=== PATIENT | male | born 1945 | race Caucasian/White ===

== ENCOUNTER 2018-06-19 09:36 | Emergency (ER) | payer OTHER, MEDICARE ==
[~2018-06-19] VITALS: Ht 177.8 cm; Wt 102.0 kg
[2018-06-19 09:55] VITALS: BP 147/77
[2018-06-19 10:07] LABS: HEMATOCRIT 36.5 % (39.0-50.0); IMMATURE GRANULOCYTES 0.3 % (0.0-5.0); MEAN CORPUSCULAR HGB 28.9 pG CALC (26.0-32.0); MEAN CORPUSCULAR HGB CONC 32.9 g/L CALC (32.0-36.0); NEUT# 5.68 thou/uL (1.82-7.42); RED BLOOD COUNT 4.15 mill/uL (4.70-6.10); RED CELL DISTRI WIDTH 12.7 % (11.5-15.5)
[2018-06-19] MEDS ORDERED: OMEPRAZOLE20 MG PO (10:08)
[2018-06-19] MEDS ORDERED: LEVOTHYROXIN50 MC1 PO (10:08)
[2018-06-19] MEDS ORDERED: AMLODIPINE5 MG PO (10:09)
[2018-06-19 10:22] LABS: ALBUMIN 4.3 g/dL (3.2-5.0); ALKALINE PHOSPHATASE 67 u/l (38-126); ANION GAP 15 (6-22 (CALC)); BILIRUBIN, TOTAL 0.6 mg/dL (0.0-1.4); BUN 28 mg/dL (8-23); BUN/CREATININE RATIO 29 (12-20 (CALC)); CARBON DIOXIDE 25 mmol/l (22-30); CHLORIDE 105 mmol/l (95-108); GFR > 60 ML/MIN (>=60 (CALC)); GFR FOR AFR.AMER. > 60 ML/MIN (>=60 (CALC)); POTASSIUM 4.4 mmol/l (3.5-5.1); SGOT/AST 32 u/l (19-48); SODIUM 140 mmol/l (137-146)
[2018-06-19 11:42] LABS: ACT PARTIAL THROMBO TIME 33.3 SECONDS (20.0-32.5); PROTHROMBIN TIME 10.8 SECONDS (9.0-12.5)
== END 2018-06-19 12:15 | disposition short-term general hospital (02) | DRG 301 ==
LOC: ED 09:36
PROVIDERS: Emergency Medicine
DX: I82.402 Acute embolism and thrombosis of unspecified deep veins of left lower extremity (principal); I10 Essential (primary) hypertension; E03.9 Hypothyroidism, unspecified
CPT/HCPCS: J1644

== ENCOUNTER 2019-08-06 09:22 | Day surgery (SDC) | payer MEDICARE ==
[~2019-08-06 09:22] MED LIST: ALLERGY RE50 MCG/ACT; AMLODIPINE5 MG PO; ELIQUIS5 MG PO; GABAPENTIN100 MG PO; IRON325 M1 PO; LEVOTHYROXIN50 MC1 PO; LOSARTAN POTASS50 MG PO; MAGNESIUM250 M1 PO; OMEPRAZOLE20 MG PO; PROTONIX40 M2 PO; TYLENOL 8 HOUR650 MG PO
[2019-08-06 11:52] VITALS: BP 108/55
== END 2019-08-06 12:05 | disposition home or self-care (01) ==
LOC: ENDO 09:22 → ORM 09:30 → ENDO 12:05
PROVIDERS: ATTEND Surgery
PROC: 0DBH8ZX Excision of Cecum, Via Natural or Artificial Opening Endoscopic, Diagnostic (ICD-10-PCS; principal; 2019-08-06)
PROC: 0DBF8ZX Excision of Right Large Intestine, Via Natural or Artificial Opening Endoscopic, Diagnostic (ICD-10-PCS; 2019-08-06)
PROC: 0DB48ZX Excision of Esophagogastric Junction, Via Natural or Artificial Opening Endoscopic, Diagnostic (ICD-10-PCS; 2019-08-06)
PROC: 0DB78ZX Excision of Stomach, Pylorus, Via Natural or Artificial Opening Endoscopic, Diagnostic (ICD-10-PCS; 2019-08-06)
PROC: 0DB68ZX Excision of Stomach, Via Natural or Artificial Opening Endoscopic, Diagnostic (ICD-10-PCS; 2019-08-06)
DX: R19.5 Other fecal abnormalities (principal); D64.9 Anemia, unspecified; K57.30 Diverticulosis of large intestine without perforation or abscess without bleeding; D12.2 Benign neoplasm of ascending colon; D12.0 Benign neoplasm of cecum; K64.8 Other hemorrhoids; Q43.9 Congenital malformation of intestine, unspecified; K29.50 Unspecified chronic gastritis without bleeding; K44.9 Diaphragmatic hernia without obstruction or gangrene; K21.9 Gastro-esophageal reflux disease without esophagitis; I10 Essential (primary) hypertension; E03.9 Hypothyroidism, unspecified; Z79.899 Other long term (current) drug therapy; Z79.01 Long term (current) use of anticoagulants; Z86.711 Personal history of pulmonary embolism; Z11.59 Encounter for screening for other viral diseases

== ENCOUNTER 2020-02-08 20:20 | Observation (INO) | payer MEDICARE ==
[~2020-02-08] VITALS: Ht 177.8 cm; Wt 103.0 kg
--- NOTE | 2020-02-08 20:20 | NUR ---
BY WC TO ROOM
[2020-02-08] MEDS ORDERED: METOPROLOL SUCC50 MG PO (20:50)
[2020-02-08] MEDS ORDERED: NEXIUM40 M1 PO (20:51)
[2020-02-08] MEDS ORDERED: HYDROXYCHLOR200 M1 PO (20:52)
[2020-02-08] MEDS ORDERED: TRAZODONE50 MG PO (20:53)
[2020-02-08] MEDS ORDERED: RYTARY 36.25-141 CAP PO (20:56)
[2020-02-08 21:03] LABS: HEMATOCRIT 40.1 % (39.0-50.0); HEMOGLOBIN 13.2 g/dl (14.0-18.0); IMMATURE GRANULOCYTES 0.3 % (0.0-5.0); MEAN CORPUSCULAR HGB 30.1 pG CALC (26.0-32.0); MEAN CORPUSCULAR HGB CONC 32.9 g/dL CAL (32.0-36.0); NEUT# 4.48 thou/uL (1.82-7.42); RED BLOOD COUNT 4.38 mill/uL (4.70-6.10); RED CELL DISTRI WIDTH 11.8 % (11.5-15.5)
[2020-02-08 21:04] LABS: MEAN CELL VOLUME 91.6 fL CALC (80.0-100.0)
--- NOTE | 2020-02-08 21:08 | NUR ---
Patient resting, at bedside. CALL ACEVES AVAILABLE.
[2020-02-08 21:20] LABS: PROTHROMBIN TIME 10.4 SECONDS (9.0-12.5)
--- NOTE | 2020-02-08 21:21 | NUR ---
Patient states he is feeling better. Notified of plan of care..
[2020-02-08 21:22] LABS: ALBUMIN 4.5 g/dL (3.2-5.0); ALKALINE PHOSPHATASE 60 u/l (38-126); ANION GAP 10 (6-22 (CALC)); BILIRUBIN, TOTAL 0.3 mg/dL (0.0-1.4); BUN 28 mg/dL (8-23); BUN/CREATININE RATIO 22 (12-20 (CALC)); CARBON DIOXIDE 29 mmol/l (22-30); CHLORIDE 104 mmol/l (95-108); CREATININE 1.3 mg/dL (0.7-1.3); GFR 54 ML/MIN (>=60 (CALC)); GFR FOR AFR.AMER. > 60 ML/MIN (>=60 (CALC)); POTASSIUM 4.2 mmol/l (3.5-5.1); SGOT/AST 37 u/l (19-48); SODIUM 140 mmol/l (137-146); TOTAL PROTEIN 8.7 g/dL (6.3-8.2)
[2020-02-08 21:33] LABS: MYOGLOBIN 60 ng/mL (0 - 121)
--- NOTE | 2020-02-08 21:37 | NUR ---
DR CHISHOLM IN TO UPDATE PT ON PLAN OF CARE.
--- NOTE | 2020-02-08 22:00 | NUR ---
TOOK OVER PT FROM JUANJOSE ROSE. WHEN PT ARRIVED HE WAS COMPLAINING OF PAIN IN HIS LEFT CHEST BUT MOSTLY IN LEFT ARM. PT VERY ANXIOUS AT THAT TIME DUE TO HISTORY OF BLOOD CLOTS IN HIS LEGS AND LEFT ARM FEELS TIGHT LIKE HIS DVT DID. PT IS NOW CALM AND RELAXED. PAIN GONE EXCEPT WHEN HE TAKES A DEEP BREATH HIS THROAT HURTS.
--- NOTE | 2020-02-08 22:36 | NUR ---
DR CHISHOLM IN TO GO OVER RESULTS AND DISCUSS PLAN OF CARE.
--- NOTE | 2020-02-08 22:54 | NUR ---
PT TO BE ADNITTED OBSERVATION FOR CHEST PAIN. COVID SWAB COLLECTED AND SENT TO LAB.
--- NOTE | 2020-02-08 23:40 | NUR ---
COVID ANTIGEN NEGATIVE. WAITING ON BED.
--- NOTE | 2020-02-09 00:11 | NUR ---
Admission Note Report Given to: JUANJOSE CRANE Transported by: X Wheelchair Stretcher Transported with: X Nurse Transporter X Patent IV O2 X Personnel Coordinator Location: ICU X [facility]
[2020-02-09 01:13] VITALS: BP 142/83
--- NOTE | 2020-02-09 01:17 | NUR ---
PATIENT ADMITTED FROM ER VIA STRETCHER WITH ER STAFF IN ATTENDANCE. PATIENT IS ABLE TO WALK FROM STRETCHER TO THE BR TO VOID-STEADY ON HIS FEET. PATIENT RESTING IN BED AT THIS TIME. ALERT AND ORIENTEDX3. PATIENT WAS ADMITTED FOR CHEST TIGHTNESS THAT RADIATED TO HIS LEFT SHOULDER/NECK AND THEN DOWN HIS LEFT ARM. PAIN IS RELIEVED AT THIS TIME. PATIENT WITH HISTORY OF PARKINSONS DISEASE, HTN. PATIENT IS QUITE ANXIOUS ABOUT BEING IN THE HOSPITAL. REASSURANCE WAS OFFERED. TELE MONITOR IN P[LACE. SALINE LOCK TO RAC INTACT AND FLUSHED WITH GOOD BLOOD RETURN. LUNGS ARE CLEAR. HR IS REGULAR. ABD IS SOFT WITH ACTIVE BS-LAST BM WAS 12/07. DENIES ANY DIFFICULTY WITH URINATION. NO PERIPHERAL EDEMA NOTED AND PULSES AR PALPABLE. ORIENTED TO ROOM AND SURROUNDINGS. INSTRUCTED ON USE OF NURSE CALL LIGHT SYSTEM, TV REMOTE AND PHONE. CALL LIGHT IN REACH. WILL CONT TO MONITOR.
--- NOTE | 2020-02-09 02:15 | NUR ---
PATIENT RESTING IN BED AT THIS TIME WITH HOB SLIGHTLY ELEVATED AND EYES CLOSED. RESPS ARE EVEN AND UNLABORED. TELE MONITOR IN PLACE-SR 76. CALL LIGHT IN REACH. WILL CONT TO MONITOR
[2020-02-09 03:42] VITALS: BP 145/74
--- NOTE | 2020-02-09 04:30 | NUR ---
PATIENT APPEARS SLEEPING AT THIS TIME WITH EYES CLOSED. RESPS ARE EVEN AND UNLABORED. TELE MONITOR IN PLACE. CALL LIGHT IN REACH. WILL CONT TO MONITOR/.
--- NOTE | 2020-02-09 07:15 | NUR ---
REPORT RECEIVED FROM JUANJOSE CRANE
--- NOTE | 2020-02-09 08:30 | NUR ---
PT RESTING IN SEMI FOWLERS POSITION,A&O X3;VS OBTAINED AND ASSESSMENT COMPLETED;PT REPORTS LEFT CHEST PRESSURE WITH MOVEMENT OR WHEN PRESSURE IS APPLIED, PAIN SCALE AND REPORTING EDUCATED;RESPIRATIONS EVEN AND UNLABORED ON RA,CLEAR LUNG SOUNDS;ABDOMEN SOFT ON PALPATION AND ACTIVE IN ALL 4 QUADRANTS;STRONG PEDAL PULSES;SKIN INTACT;TELE MONITORING IN PLACE;#20G TO RAC FLUSHED AND PATENT,SITE APPEARS HEALTHY;PT DENIES ANY ADDITIONAL NEEDS AT THIS TIME AND IS ENCOURAGED TO CALL FOR ASSISTANCE IF NEEDED;FALL PRECAUTIONS IN PLACE WITH BED IN THE LOWEST POSITION AND CALL LIGHT IN REACH;WILL CONTINUE TO MONITOR
[2020-02-09 08:33] VITALS: BP 142/91
--- NOTE | 2020-02-09 08:52 | NUR ---
AT BEDSIDE DISCUSSING POC WITH PT.
[2020-02-09 10:30] VITALS: BP 137/83
--- NOTE | 2020-02-09 11:25 | NUR ---
PT RESTING IN SEMI FOWLERS POSITION;RESPIRATIONS EVEN AND UNLABORED ON RA;PT REPORTS HEADACHE PAIN RATING 6/10 ON THE PAIN SCALE AND REQUESTS PAIN MEDICATION, PT MEDICATED WITH PRN TYLENOL 650MG PO AT THIS TIME;IV SITE PATENT;TELE MONITORING IN PLACE;ASSESSMENT REMAINS UNCHANGED;ENCOURAGED PT TO CALL FOR ASSISTANCE IF NEEDED;FALL PRECAUTIONS REMAIN IN PLACE WITH CALL LIGHT IN REACH;WILL CONTINUE TO MONITOR
[2020-02-09] MEDS ORDERED: FLEXERIL5 MG PO (13:42)
--- NOTE | 2020-02-09 15:05 | NUR ---
ALL DISCHARGE INSTRUCTIONS PROVIDED AT THIS TIMEL;PT INSTRUCTED TO F/U WITH PCP IN THE NEXT WEEK, F/U WITH FOR A CARDIAC WORKUP, CONTINUE HOME MEDICATIONS DIRECTED, RX FOR FLEXIRL SENT TO PHARMACY AND PT INSTRUCTED TO TAKE NEEDED;PT DENIES ANY ADDITIONAL QUESTIONS OR NEEDS;IV SITE REMOVED WITH CATHETER INTACT AND TELE MONITORING D/C;WHEELCHAIR TO BE PROVIDED FOR D/C HOME;SPOUSE TO TRANSPORT PT HOME;WILL CONTINUE TO MONITOR
--- NOTE | 2020-02-09 15:06 | NUR ---
Discharge instructions given. Patient verbalizes understanding of same. Discharged in stable condition via Wheelchair to Home with spouse. All belongings sent with pt. PT TRANSPORTED TO [facility] IN STABLE CONDITION VIA WHEELCHAIR ACCOMPANIED BY ESTELA LIU;ALL BELONGINGS LEFT WITH PT.SPOUSE TO TRANSPORT PT HOME.
== END 2020-02-09 15:05 | disposition home or self-care (01) ==
LOC: ED 20:20 → ED-I 22:29 → MS2 23:03 → ED 23:03 → MS2 23:03
PROVIDERS: Emergency Medicine; ADMIT Internal Medicine; ATTEND Internal Medicine
DX: R07.89 Other chest pain (principal); M25.512 Pain in left shoulder; I10 Essential (primary) hypertension; E03.9 Hypothyroidism, unspecified; G20 Parkinson's disease; K21.00 Gastro-esophageal reflux disease with esophagitis, without bleeding; Z86.711 Personal history of pulmonary embolism; Z79.01 Long term (current) use of anticoagulants; Z86.718 Personal history of other venous thrombosis and embolism; Z20.828 Contact with and (suspected) exposure to other viral communicable diseases
CPT/HCPCS: Q9967

== ENCOUNTER 2022-04-02 11:24 | Day surgery (SDC) | payer OTHER, MEDICARE ==
[~2022-04-02 11:24] MED LIST changes: +FLEXERIL5 MG PO; +HYDROXYCHLOR200 M1 PO; +METOPROLOL SUCC50 MG PO; +NEXIUM40 M1 PO; +NORVASC2.5 M1 PO; +RYTARY 36.25-141 CAP PO; +TRAZODONE50 MG PO; +VITAMIN D320 MCG PO
[2022-04-02 18:53] VITALS: BP 136/78
== END 2022-04-02 19:10 | disposition home or self-care (01) | DRG 470 ==
LOC: ORM 11:24
PROVIDERS: ATTEND Orthopaedic Surgery
PROC: 0SRC0JA Replacement of Right Knee Joint with Synthetic Substitute, Uncemented, Open Approach (ICD-10-PCS; principal; 2022-04-02)
PROC: 3E0T3BZ Introduction of Anesthetic Agent into Peripheral Nerves and Plexi, Percutaneous Approach (ICD-10-PCS; 2022-04-02)
DX: M17.11 Unilateral primary osteoarthritis, right knee (principal); I10 Essential (primary) hypertension; G20 Parkinson's disease; M35.00 Sjogren syndrome, unspecified; Z86.718 Personal history of other venous thrombosis and embolism; Z79.01 Long term (current) use of anticoagulants; Z87.891 Personal history of nicotine dependence
CPT/HCPCS: C1776; J0131

== ENCOUNTER 2022-05-11 21:37 | Emergency (ER) | payer OTHER, MEDICARE ==
[2022-05-11] VITALS (8 sets, daily range): BP systolic 114–135; BP diastolic 64–76
[~2022-05-11] VITALS: Ht 177.8 cm; Wt 227.0 kg
[2022-05-11 22:22] LABS: BASO% 1.5 % (0-3); EOS% 5.7 % (0-8); HEMOGLOBIN 9.7 g/dl (14.0-18.0); LYMPH% 22.4 % (15-41); MEAN CELL VOLUME 88.9 fL CALC (80.0-100.0); MEAN CORPUSCULAR HGB 26.9 pG CALC (26.0-32.0); MEAN CORPUSCULAR HGB CONC 30.3 g/dL CAL (32.0-36.0); MONO% 9.5 % (2-13); NEUT# 3.32 thou/uL (1.82-7.42); NEUT% 60.9 % (42-76); RED BLOOD COUNT 3.6 mill/uL (4.70-6.10); RED CELL DISTRI WIDTH 13.2 % (11.5-15.5)
[2022-05-11 22:36] LABS: URINE BILIRUBIN - DIPSTICK NEGATIVE (NEGATIVE); URINE BLOOD DIPSTICK NEGATIVE (NEGATIVE); URINE COLOR YELLOW; URINE GLUCOSE - DIPSTICK NEGATIVE (NEGATIVE); URINE KETONE NEGATIVE (NEGATIVE); URINE LEUK ESTERASE NEGATIVE (NEGATIVE); URINE PH 5.5 (4.5-8.0); URINE PROTEIN - DIPSTICK NEGATIVE (NEG-TRACE); URINE SPECIFIC GRAVITY >=1.030; URINE UROBILINOGEN - DIPSTICK 0.2 E.U./dL (0.2)
[2022-05-11 22:37] LABS: URINE NITRITE - DIPSTICK NEGATIVE (Negative)
[2022-05-11 22:48] LABS: ALBUMIN 4.1 g/dL (3.2-5.0); ALKALINE PHOSPHATASE 85 u/l (38-126); ANION GAP 11 (6-22 (CALC)); BUN 27 mg/dL (8-23); BUN/CREATININE RATIO 25 (12-20 (CALC)); CARBON DIOXIDE 27 mmol/l (22-30); CHLORIDE 104 mmol/l (95-108); CREATININE 1.1 mg/dL (0.7-1.3); GFR FOR AFR.AMER. > 60 ML/MIN (>=60 (CALC)); GFR OTHER RACES > 60 ML/MIN (>=60 (CALC)); POTASSIUM 4.2 mmol/l (3.5-5.1); SGOT/AST 28 u/l (19-48); SODIUM 138 mmol/l (137-146); TOTAL PROTEIN 7.8 g/dL (6.3-8.2)
== END 2022-05-11 23:18 | disposition left against medical advice (07) | DRG 313 ==
LOC: ED 21:37
PROVIDERS: Emergency Medicine
DX: R07.9 Chest pain, unspecified (principal); Z20.822 Contact with and (suspected) exposure to COVID-19; I10 Essential (primary) hypertension; E03.9 Hypothyroidism, unspecified; G20 Parkinson's disease

== ENCOUNTER 2022-05-25 19:54 | Emergency (ER) | payer OTHER, MEDICARE ==
[~2022-05-25] VITALS: Ht 177.8 cm; Wt 103.0 kg
[2022-05-25 20:50] LABS: BASO% 0.4 % (0-3); EOS% 2.3 % (0-8); HEMATOCRIT 32.2 % (39.0-50.0); HEMOGLOBIN 9.7 g/dl (14.0-18.0); IMMATURE GRANULOCYTES 0.4 % (0.0-5.0); LYMPH% 10.7 % (15-41); MEAN CELL VOLUME 85.4 fL CALC (80.0-100.0); MEAN CORPUSCULAR HGB 25.7 pG CALC (26.0-32.0); MEAN CORPUSCULAR HGB CONC 30.1 g/dL CAL (32.0-36.0); MONO% 10.4 % (2-13); NEUT# 5.55 thou/uL (1.82-7.42); NEUT% 75.8 % (42-76); RED BLOOD COUNT 3.77 mill/uL (4.70-6.10); RED CELL DISTRI WIDTH 13.3 % (11.5-15.5)
[2022-05-25 21:04] LABS: ALBUMIN 4.2 g/dL (3.2-5.0); ALKALINE PHOSPHATASE 66 u/l (38-126); ANION GAP 13 (6-22 (CALC)); BUN 20 mg/dL (8-23); BUN/CREATININE RATIO 24 (12-20 (CALC)); CARBON DIOXIDE 29 mmol/l (22-30); CHLORIDE 99 mmol/l (95-108); CREATININE 0.9 mg/dL (0.7-1.3); GFR FOR AFR.AMER. > 60 ML/MIN (>=60 (CALC)); GFR OTHER RACES > 60 ML/MIN (>=60 (CALC)); POTASSIUM 4.1 mmol/l (3.5-5.1); SODIUM 136 mmol/l (137-146); TOTAL PROTEIN 7.6 g/dL (6.3-8.2)
[2022-05-25 21:05] LABS: BILIRUBIN, TOTAL 0.2 mg/dL (0.2-1.3); SGOT/AST 56 u/l (19-48)
[2022-05-25 21:32] LABS: URINE BILIRUBIN - DIPSTICK NEGATIVE (NEGATIVE); URINE BLOOD DIPSTICK NEGATIVE (NEGATIVE); URINE COLOR YELLOW; URINE GLUCOSE - DIPSTICK NEGATIVE (NEGATIVE); URINE KETONE NEGATIVE (NEGATIVE); URINE LEUK ESTERASE NEGATIVE (NEGATIVE); URINE NITRITE - DIPSTICK NEGATIVE (Negative); URINE PROTEIN - DIPSTICK NEGATIVE (NEG-TRACE); URINE UROBILINOGEN - DIPSTICK 0.2 E.U./dL (0.2)
[2022-05-25 22:40] VITALS: BP 138/83
[2022-05-25 22:45] VITALS: BP 123/74
[2022-05-25 23:00] VITALS: BP 129/80
[2022-05-25 23:15] VITALS: BP 137/83
[2022-05-25 23:30] VITALS: BP 126/84
[2022-05-25 23:45] VITALS: BP 124/78
[2022-05-26] VITALS: BP 120/73
[2022-05-26 00:15] VITALS: BP 120/73
[2022-05-26 00:30] VITALS: BP 119/70
[2022-05-26 00:45] VITALS: BP 121/76
[2022-05-26 01:00] VITALS: BP 111/76
[2022-05-26 01:25] VITALS: BP 111/76
== END 2022-05-26 01:26 | disposition short-term general hospital (02) | DRG 313 ==
LOC: ED 19:54
PROVIDERS: Emergency Medicine
DX: R07.9 Chest pain, unspecified (principal); I10 Essential (primary) hypertension; E11.9 Type 2 diabetes mellitus without complications; Z79.84 Long term (current) use of oral hypoglycemic drugs; K21.9 Gastro-esophageal reflux disease without esophagitis; G20 Parkinson's disease; E03.9 Hypothyroidism, unspecified; Z86.718 Personal history of other venous thrombosis and embolism; Z79.01 Long term (current) use of anticoagulants
CPT/HCPCS: Q9967

== ENCOUNTER 2022-06-18 22:09 | Emergency (ER) | payer OTHER, MEDICARE ==
[~2022-06-18] VITALS: Ht 177.8 cm; Wt 102.0 kg
[~2022-06-18 22:09] MED LIST changes: +CARBIDOPA/LEVOD1 TA5 PO; -RYTARY 36.25-141 CAP PO
[2022-06-18 22:19] VITALS: BP 109/77
[2022-06-18 22:31] VITALS: BP 125/79
[2022-06-18 22:54] LABS: BASO% 0.7 % (0-3); EOS% 3.7 % (0-8); HEMATOCRIT 28.3 % (39.0-50.0); HEMOGLOBIN 8.2 g/dl (14.0-18.0); LYMPH% 9.2 % (15-41); MEAN CORPUSCULAR HGB 24.3 pG CALC (26.0-32.0); MONO% 11.5 % (2-13); NEUT# 5.63 thou/uL (1.82-7.42); NEUT% 74.9 % (42-76); RED BLOOD COUNT 3.37 mill/uL (4.70-6.10); RED CELL DISTRI WIDTH 14.7 % (11.5-15.5)
[2022-06-18 23:00] VITALS: BP 97/63
[2022-06-18 23:05] LABS: ALBUMIN 3.8 g/dL (3.2-5.0); ALKALINE PHOSPHATASE 47 u/l (38-126); ANION GAP 12 (6-22 (CALC)); BUN 24 mg/dL (8-23); BUN/CREATININE RATIO 27 (12-20 (CALC)); CARBON DIOXIDE 26 mmol/l (22-30); CHLORIDE 100 mmol/l (95-108); CREATININE 0.9 mg/dL (0.7-1.3); GFR FOR AFR.AMER. > 60 ML/MIN (>=60 (CALC)); GFR OTHER RACES > 60 ML/MIN (>=60 (CALC)); POTASSIUM 4.6 mmol/l (3.5-5.1); SGOT/AST 40 u/l (19-48); SODIUM 133 mmol/l (137-146); TOTAL PROTEIN 7.4 g/dL (6.3-8.2)
[2022-06-18] MEDS ORDERED: LOPRESSOR25 M1 PO (23:07)
[2022-06-18] MEDS ORDERED: CLOPIDOGREL75 MG PO (23:07)
[2022-06-18] MEDS ORDERED: BUSPIRONE5 MG PO (23:08)
[2022-06-18] MEDS ORDERED: MAGNESIUM200 MG PO (23:09)
[2022-06-18] MEDS ORDERED: ATORVASTATIN CA40 MG PO (23:09)
[2022-06-18] MEDS ORDERED: LEVOTHYROXIN75 MCG PO (23:10)
[2022-06-18] MEDS ORDERED: VITAMIN D325 MCG PO (23:11)
[2022-06-18] MEDS ORDERED: TYLENOL ARTHRITIS (23:12)
[2022-06-18 23:19] LABS: BILIRUBIN, TOTAL 0.4 mg/dL (0.2-1.3)
[2022-06-18 23:26] LABS: D-DIMER 7.61 mg/L (0.19-0.60)
[2022-06-18 23:44] LABS: ACT PARTIAL THROMBO TIME 33.2 SECONDS (20.0-32.5); INTERNATIONAL NORMALIZED RATIO 1.2 RATIO (0.7-1.3); PROTHROMBIN TIME 11.8 SECONDS (9.0-12.5)
[2022-06-19] VITALS (11 sets, daily range): BP systolic 112–142; BP diastolic 61–85
--- NOTE | 2022-06-19 00:10 | NUR ---
400 ML CLEAR YELLOW URINE EMPTIED FROM URINAL
--- NOTE | 2022-06-19 02:32 | NUR ---
Reassessment of patient completed. No distress noted.
--- NOTE | 2022-06-19 03:35 | NUR ---
CONSENT OBTAINED FROM PT TO BE TRANSFERRED TO [facility]. AWARE.
--- NOTE | 2022-06-19 03:46 | NUR ---
At 0324 called [facility] transfer center and spoke with Berta, explained that pt is IP admitted prior to recieving CT results and pt now needs to be a transfer but will be IP not ER to ER, as patient needs Cardiology services and we are unable to provide that but that admitting MD is not familiar with pt so when their MD wants report they should speak with ER MD who will have a better history and picture at present time, Berta expressed understanding, contact information of Med Surg, ER and Metal Riveter provided for any further needs or questions.
--- NOTE | 2022-06-19 04:02 | NUR ---
FACE SHEET FAXED TO [facility] PER REQUEST OF ARPIT AT TRANSFER CENTER FAXED TO [phone]
--- NOTE | 2022-06-19 04:52 | NUR ---
ARPIT CALLED BACK WITH BED ASSIGNMENT AT [facility], ROOM 214 BED 1 ACCEPTING PHYSICIAN IS THOMAS PINEDA. WILL CALL REPORT AND POSITIVE TRANSPORT.
--- NOTE | 2022-06-19 05:16 | NUR ---
INFORMED PT IS BEING TRANSFERRED TO [facility] INSTEAD OF [facility]. CONSENT SIGNED BY PATIENT. REPORT CALLED TO JUANJOSE HU AT [facility].
--- NOTE | 2022-06-19 05:40 | NUR ---
REPORT GIVEN TO [facility] SENIOR TAX ANALYST. BELONGINGS TRANSFERRED WITH PATIENT.
--- NOTE | 2022-06-19 05:40 | NUR ---
positive trasnpor at bedside for transport to [facility]. report called to Sadaf @ [phone] by Marie SOW
== END 2022-06-19 05:40 | DRG 315 ==
LOC: ED 22:09 → MS2 06-19 00:14 → ED 06-19 00:14 → MS2 06-19 05:48
PROVIDERS: Emergency Medicine
DX: I31.39 Other pericardial effusion (noninflammatory) (principal); I50.22 Chronic systolic (congestive) heart failure; I11.0 Hypertensive heart disease with heart failure; D64.9 Anemia, unspecified; I25.10 Atherosclerotic heart disease of native coronary artery without angina pectoris; G20 Parkinson's disease; E03.9 Hypothyroidism, unspecified; K21.9 Gastro-esophageal reflux disease without esophagitis; I25.2 Old myocardial infarction; Z95.5 Presence of coronary angioplasty implant and graft; Z86.718 Personal history of other venous thrombosis and embolism; Z20.822 Contact with and (suspected) exposure to COVID-19
CPT/HCPCS: Q9967

== ENCOUNTER 2022-07-10 15:26 | Inpatient (IN) | payer OTHER, MEDICARE ==
[~2022-07-10] VITALS: Ht 177.8 cm; Wt 97.3 kg
[~2022-07-10 15:26] MED LIST changes: +ATORVASTATIN CA40 MG PO; +BUSPIRONE5 MG PO; +CLOPIDOGREL75 MG PO; +LEVOTHYROXIN75 MCG PO; +LOPRESSOR25 M1 PO; +MAGNESIUM200 MG PO; +TYLENOL ARTHRITIS; +VITAMIN D325 MCG PO
--- NOTE | 2022-07-10 15:41 | NUR ---
PT DIRECT ADMIT BY DR. OROZCO. PT UP TO FLOOR VIA W/C TO RM 261. PT ALERT AND ORIENTED X 3, NO C/O PAIN AT THIS TIME. PT ADMISSION ORDERS ENTERED. #20 TO RAC STARTED, PT TOLERATED WELL. ABD SOFT AND BS ACTIVE. PT AMBULATES WITH CANE TO THE BATHROO, PT INSTRUCTED TO CALL FOR ASSISTANCE TO BATHROOM. +2 EDEMA TO TO BLE, BLANCA HOSE APPLIED. SKIN IS CLEAN AND FREE OF ANY OPENINGS. PT WAS OREINTED TO AND CALL LIGHT. CALL LIGHT WITHIN REACH AND ALL SAFETY MEASURES IN PLACE.
[2022-07-10 15:45] VITALS: BP 112/65
[2022-07-10] MEDS ORDERED: LASIX 20 MG TAB20 MG PO (16:42)
[2022-07-10 17:02] LABS: BASO% 0.7 % (0-3); EOS% 2.2 % (0-8); HEMATOCRIT 27.9 % (39.0-50.0); HEMOGLOBIN 7.9 g/dl (14.0-18.0); IMMATURE GRANULOCYTES 0.2 % (0.0-5.0); LYMPH% 11.2 % (15-41); MEAN CELL VOLUME 80.9 fL CALC (80.0-100.0); MEAN CORPUSCULAR HGB 22.9 pG CALC (26.0-32.0); MEAN CORPUSCULAR HGB CONC 28.3 g/dL CAL (32.0-36.0); MONO% 11.4 % (2-13); NEUT# 4.1 thou/uL (1.82-7.42); NEUT% 74.3 % (42-76); RED BLOOD COUNT 3.45 mill/uL (4.70-6.10); RED CELL DISTRI WIDTH 15.8 % (11.5-15.5)
[2022-07-10 17:17] LABS: ALBUMIN 3.2 g/dL (3.2-5.0); ALKALINE PHOSPHATASE 68 u/l (38-126); ANION GAP 9 (6-22 (CALC)); BILIRUBIN, TOTAL 0.2 mg/dL (0.2-1.3); BUN 22 mg/dL (8-23); BUN/CREATININE RATIO 29 (12-20 (CALC)); CARBON DIOXIDE 28 mmol/l (22-30); CHLORIDE 104 mmol/l (95-108); CREATININE 0.8 mg/dL (0.7-1.3); GFR FOR AFR.AMER. > 60 ML/MIN (>=60 (CALC)); GFR OTHER RACES > 60 ML/MIN (>=60 (CALC)); POTASSIUM 4.2 mmol/l (3.5-5.1); SGOT/AST 31 u/l (19-48); SODIUM 137 mmol/l (137-146); TOTAL PROTEIN 6.5 g/dL (6.3-8.2)
[2022-07-10 18:53] VITALS: BP 128/75
[2022-07-10 19:52] LABS: URINE BILIRUBIN - DIPSTICK NEGATIVE (NEGATIVE); URINE BLOOD DIPSTICK NEGATIVE (NEGATIVE); URINE COLOR YELLOW; URINE GLUCOSE - DIPSTICK NEGATIVE (NEGATIVE); URINE KETONE NEGATIVE (NEGATIVE); URINE LEUK ESTERASE NEGATIVE (NEGATIVE); URINE PROTEIN - DIPSTICK NEGATIVE (NEG-TRACE); URINE UROBILINOGEN - DIPSTICK 0.2 E.U./dL (0.2)
[2022-07-10 20:15] LABS: URINE NITRITE - DIPSTICK NEGATIVE (Negative)
[2022-07-10 20:46] VITALS: BP 127/79
--- NOTE | 2022-07-10 20:52 | NUR ---
PATIENT UNIT OF BLOOD STARTED VERIFIED WITH ANOTHER NURSE, PATEINT IN BED, NOT IN DISTRESS, NO ALLERGIC REACTION NOTED AT THIS TIME.
[2022-07-10 21:07] VITALS: BP 135/79
[2022-07-10 21:52] VITALS: BP 133/79
[2022-07-10 23:12] VITALS: BP 136/82
--- NOTE | 2022-07-10 23:13 | NUR ---
ONE UNIT OF BLOOD COMPLETED, NO REACTIONS NOTED DURING THE TRANSFUSION TIME.
[2022-07-11 00:29] VITALS: BP 131/80
[2022-07-11 03:45] VITALS: BP 132/77
[2022-07-11 05:28] LABS: BASO% 0.7 % (0-3); HEMATOCRIT 30.3 % (39.0-50.0); HEMOGLOBIN 8.9 g/dl (14.0-18.0); IMMATURE GRANULOCYTES 0.2 % (0.0-5.0); LYMPH% 12.4 % (15-41); MEAN CORPUSCULAR HGB 23.8 pG CALC (26.0-32.0); MEAN CORPUSCULAR HGB CONC 29.4 g/dL CAL (32.0-36.0); MONO% 11.1 % (2-13); NEUT# 4.11 thou/uL (1.82-7.42); NEUT% 72.6 % (42-76); RED BLOOD COUNT 3.74 mill/uL (4.70-6.10); RED CELL DISTRI WIDTH 15.6 % (11.5-15.5)
[2022-07-11 05:49] LABS: ALBUMIN 3.6 g/dL (3.2-5.0); ALKALINE PHOSPHATASE 75 u/l (38-126); ANION GAP 10 (6-22 (CALC)); BUN 22 mg/dL (8-23); BUN/CREATININE RATIO 25 (12-20 (CALC)); CARBON DIOXIDE 31 mmol/l (22-30); CHLORIDE 101 mmol/l (95-108); CREATININE 0.9 mg/dL (0.7-1.3); GFR FOR AFR.AMER. > 60 ML/MIN (>=60 (CALC)); GFR OTHER RACES > 60 ML/MIN (>=60 (CALC)); MAGNESIUM 1.9 mg/dL (1.6-2.3); POTASSIUM 3.8 mmol/l (3.5-5.1); SGOT/AST 31 u/l (19-48); SODIUM 138 mmol/l (137-146); TOTAL PROTEIN 7.3 g/dL (6.3-8.2)
[2022-07-11 05:50] LABS: BILIRUBIN, TOTAL 0.4 mg/dL (0.2-1.3)
[2022-07-11 06:52] VITALS: BP 147/79
--- NOTE | 2022-07-11 07:30 | NUR ---
PT ALERT AND ORIENTED.ABLE TO MAKE NEEDS KNOWN.OOB IN CHAIR.NO DISTESS NOTED.20G RAC SALINE LOCK.SAFETY PRECAUTIONS IN PLACE.CALL LIGHT WITHIN REACH.
[2022-07-11 10:25] VITALS: BP 116/71
[2022-07-11 14:56] VITALS: BP 140/87
[2022-07-11 19:27] VITALS: BP 114/55
--- NOTE | 2022-07-11 20:00 | NUR ---
RECEIVED REPORT FROM NURSE XAVIER, PATIENT SITTING IN RECLINER, LEGS ELEVATED, FAMILY IN ROOM, PATIENT ALERT ORIENTED X 4 ABLE TO MAKE NEEDS KNONW, SALINE LOCK ON RAC G 20 PATENT FLUSHES WELL. HOOKED ON TELEMETRY G 20 RAC SALINE LOCK PATENT FLUSHES WELL, TRACE OF EDEMA NOTED ON BLE, TEDS ON BOTH LOWER LEGS, CALL LIGHT IN REACH.
[2022-07-12 00:05] VITALS: BP 81/34
[2022-07-12 00:07] VITALS: BP 105/60
--- NOTE | 2022-07-12 00:17 | NUR ---
REPEATED BP AT THSI TIME.
--- NOTE | 2022-07-12 00:29 | NUR ---
PATIENT RESTING IN BED, BREATHING EVEN UNLABORED, NOT IN DISTRESS, CALL LIGHT IS WITHIN REACH.
--- NOTE | 2022-07-12 04:19 | NUR ---
PATIENT RESTING IN BED EYES CLSOED, NOT IN DISTRESS CALL LIGHT IN REACH.
[2022-07-12 04:42] VITALS: BP 118/70
[2022-07-12 05:35] LABS: HEMATOCRIT 31.8 % (39.0-50.0); HEMOGLOBIN 9.4 g/dl (14.0-18.0); MEAN CELL VOLUME 79.3 fL CALC (80.0-100.0); MEAN CORPUSCULAR HGB 23.4 pG CALC (26.0-32.0); MEAN CORPUSCULAR HGB CONC 29.6 g/dL CAL (32.0-36.0); RED BLOOD COUNT 4.01 mill/uL (4.70-6.10); RED CELL DISTRI WIDTH 15.6 % (11.5-15.5)
--- NOTE | 2022-07-12 05:52 | NUR ---
no allergic reaction noted on atorvastatin.
[2022-07-12 05:58] LABS: ALBUMIN 3.7 g/dL (3.2-5.0); ALKALINE PHOSPHATASE 78 u/l (38-126); ANION GAP 10 (6-22 (CALC)); BILIRUBIN, TOTAL 0.4 mg/dL (0.2-1.3); BUN 23 mg/dL (8-23); BUN/CREATININE RATIO 29 (12-20 (CALC)); CARBON DIOXIDE 32 mmol/l (22-30); CHLORIDE 98 mmol/l (95-108); CREATININE 0.8 mg/dL (0.7-1.3); GFR FOR AFR.AMER. > 60 ML/MIN (>=60 (CALC)); GFR OTHER RACES > 60 ML/MIN (>=60 (CALC)); MAGNESIUM 1.9 mg/dL (1.6-2.3); POTASSIUM 3.9 mmol/l (3.5-5.1); SGOT/AST 47 u/l (19-48); SODIUM 137 mmol/l (137-146); TOTAL PROTEIN 7.5 g/dL (6.3-8.2)
[2022-07-12 07:28] VITALS: BP 116/72
--- NOTE | 2022-07-12 07:45 | NUR ---
PERFORMED BEDSIDE REPORT WITH NIGHTSHIFT NURSE. PT NOTED SITTING UP FOWLERS IN BED WATCHING TV. PT IS A/OX3, MOOD IS PLEASENT. PT DENIES ANY PAIN AT THIS TIME. CALL LIGHT WITHIN REACH AND SAFETY PRECAUTIONS IN PLACE.
[2022-07-12 08:33] VITALS: BP 116/72
[2022-07-12] MEDS ORDERED: PROTONIX40 M2 PO (09:41)
[2022-07-12] MEDS ORDERED: ELIQUIS2.5 MG PO (09:44)
--- NOTE | 2022-07-12 10:39 | NUR ---
Discharge instructions given. Patient verbalizes understanding of same. Discharged in stable condition via Wheelchair to Home with staff. All belongings sent with pt. IV site discontinued, cath intact. No edema , no redness, voices no discomfort.
== END 2022-07-12 10:52 | disposition home or self-care (01) | DRG 291 ==
LOC: MS2 15:26
PROVIDERS: Nurse Practitioner Family; ADMIT Internal Medicine; ATTEND Internal Medicine
PROC: 30233N1 Transfusion of Nonautologous Red Blood Cells into Peripheral Vein, Percutaneous Approach (ICD-10-PCS; principal; 2022-07-10)
DX: I11.0 Hypertensive heart disease with heart failure (principal); I50.33 Acute on chronic diastolic (congestive) heart failure; D62 Acute posthemorrhagic anemia; I25.10 Atherosclerotic heart disease of native coronary artery without angina pectoris; G20 Parkinson's disease; K21.00 Gastro-esophageal reflux disease with esophagitis, without bleeding; R19.5 Other fecal abnormalities; E03.9 Hypothyroidism, unspecified; Z86.718 Personal history of other venous thrombosis and embolism; Z79.01 Long term (current) use of anticoagulants; Z79.02 Long term (current) use of antithrombotics/antiplatelets; Z86.711 Personal history of pulmonary embolism; Z95.5 Presence of coronary angioplasty implant and graft
CPT/HCPCS: J1756; P9016; S0164

== ENCOUNTER 2023-11-11 13:35 | Emergency (ER) | payer OTHER, MEDICARE ==
[2023-11-11] VITALS (14 sets, daily range): BP systolic 120–172; BP diastolic 66–121
[~2023-11-11] VITALS: Ht 177.8 cm; Wt 108.0 kg
[~2023-11-11 13:35] MED LIST changes: +ELIQUIS2.5 MG PO; +LASIX 20 MG TAB20 MG PO
[2023-11-11 14:55] LABS: BASO% 0.4 % (0-3); HEMATOCRIT 37.8 % (39.0-50.0); HEMOGLOBIN 12.1 g/dl (14.0-18.0); IMMATURE GRANULOCYTES 0.2 % (0.0-5.0); LYMPH% 4.7 % (15-41); MEAN CORPUSCULAR HGB 29.7 pG CALC (26.0-32.0); MONO% 9.3 % (2-13); NEUT# 7.9 thou/uL (1.82-7.42); NEUT% 84.4 % (42-76); RED BLOOD COUNT 4.08 mill/uL (4.70-6.10); RED CELL DISTRI WIDTH 12.3 % (11.5-15.5)
[2023-11-11 15:06] LABS: ALBUMIN 4.4 g/dL (3.2-5.0); ALKALINE PHOSPHATASE 62 u/l (38-126); ANION GAP 9 (6-22 (CALC)); CARBON DIOXIDE 27 mmol/l (22-30); CHLORIDE 105 mmol/l (95-108); POTASSIUM 4.2 mmol/l (3.5-5.1); SGOT/AST 34 u/l (19-48); SODIUM 137 mmol/l (137-146); TOTAL PROTEIN 7.9 g/dL (6.3-8.2)
[2023-11-11 15:10] LABS: BUN 23 mg/dL (8-23); BUN/CREATININE RATIO 22 (12-20 (CALC)); ESTIMATED GFR 78 ML/MIN (>=90 (CALC))
[2023-11-11 15:11] LABS: BILIRUBIN, TOTAL 0.8 mg/dL (0.2-1.3)
[2023-11-11 15:15] LABS: MEAN CELL VOLUME 92.6 fL CALC (80.0-100.0)
[2023-11-11 15:26] LABS: URINE BILIRUBIN - DIPSTICK Negative (NEGATIVE); URINE BLOOD DIPSTICK Trace-intact (NEGATIVE); URINE GLUCOSE - DIPSTICK Negative (NEGATIVE); URINE KETONE Negative (NEGATIVE); URINE PROTEIN - DIPSTICK Negative (NEG-TRACE); URINE UROBILINOGEN - DIPSTICK 0.2 E.U./dL (0.2)
[2023-11-11 15:35] LABS: URINE COLOR Yellow; URINE LEUK ESTERASE Moderate (NEGATIVE); URINE NITRITE - DIPSTICK Positive (Negative)
[2023-11-11 15:37] LABS: URINE BACTERIA MANY hpf; URINE WBC 50-100 WBC/hpf (0-5)
[2023-11-11] MEDS ORDERED: KEFLEX500 MG PO (17:22)
[2023-11-12] MEDS ORDERED: TOPROL XL25 M1 PO (07:34)
[2023-11-12] MEDS ORDERED: ATORVASTATIN CA40 MG PO (17:04)
[2023-11-12] MEDS ORDERED: FERROUS SULFAT325 MG PO (17:07)
[2023-11-12] MEDS ORDERED: VITAMIN D-32000 UNI1 PO (17:10)
[2023-11-12] MEDS ORDERED: SINEMET 25/1001 TA1 PO (17:20)
== END 2023-11-11 17:30 | disposition home or self-care (01) | DRG 194 ==
LOC: ED 13:35
PROVIDERS: Nurse Practitioner
DX: J10.1 Influenza due to other identified influenza virus with other respiratory manifestations (principal); N39.0 Urinary tract infection, site not specified; B96.20 Unspecified Escherichia coli [E. coli] as the cause of diseases classified elsewhere; I50.22 Chronic systolic (congestive) heart failure; G20.A1 Parkinson's disease without dyskinesia, without mention of fluctuations; I25.2 Old myocardial infarction; I11.0 Hypertensive heart disease with heart failure; I25.10 Atherosclerotic heart disease of native coronary artery without angina pectoris; Z86.718 Personal history of other venous thrombosis and embolism; E03.9 Hypothyroidism, unspecified; Z20.822 Contact with and (suspected) exposure to COVID-19

== ENCOUNTER 2023-11-11 19:53 | Observation (INO) | payer OTHER, MEDICARE ==
[2023-11-11] VITALS (7 sets, daily range): BP systolic 124–178; BP diastolic 76–119
[~2023-11-11] VITALS: Ht 177.8 cm; Wt 106.8 kg
[~2023-11-11 19:53] MED LIST changes: +KEFLEX500 MG PO
[2023-11-11] MEDS ORDERED: ACETAMINOPHEN 325 MG/TAB PO PRN (20:30)
[2023-11-11] MEDS ORDERED: Zaleplon 5 MG/CAP PO PRN (20:30)
[2023-11-11] MEDS ORDERED: MAGNESIUM HYDROXIDE 30 ML UDC PO PRN (20:30)
[2023-11-11] MEDS ORDERED: SODIUM CHLORIDE 0.9% 1,000 ML IV SCH (20:35)
[2023-11-11] MEDS ORDERED: METOPROLOL SUCCINATE 25 MG/TAB-TOPROL XL PO SCH (20:45)
[2023-11-11] MEDS ORDERED: hydrALAZINE HCL 20 MG/ML VIAL(1 ML) IV PRN (20:45)
[2023-11-11] MEDS ORDERED: OSELTAMIVIR PHOSPHATE 75 MG/TAB CAP PO SCH (21:00)
[2023-11-12] VITALS (24 sets, daily range): BP systolic 111–146; BP diastolic 54–90
[2023-11-12 06:31] LABS: BASO% 0.2 % (0-3); HEMATOCRIT 36.3 % (39.0-50.0); HEMOGLOBIN 11.7 g/dl (14.0-18.0); IMMATURE GRANULOCYTES 0.4 % (0.0-5.0); LYMPH% 3.8 % (15-41); MEAN CELL VOLUME 93.1 fL CALC (80.0-100.0); MEAN CORPUSCULAR HGB CONC 32.2 g/dL CAL (32.0-36.0); MONO% 10.4 % (2-13); NEUT# 10.91 thou/uL (1.82-7.42); NEUT% 85.2 % (42-76); RED BLOOD COUNT 3.9 mill/uL (4.70-6.10); RED CELL DISTRI WIDTH 12.5 % (11.5-15.5)
[2023-11-12 06:56] LABS: ALBUMIN 3.9 g/dL (3.2-5.0); BILIRUBIN, TOTAL 0.8 mg/dL (0.2-1.3); CREATININE 0.9 mg/dL (0.7-1.3); POTASSIUM 4.2 mmol/l (3.5-5.1)
[2023-11-12] MEDS ORDERED: TOPROL XL25 M1 PO (07:34)
[2023-11-12] MEDS ORDERED: CARBIDOPA/LEVODOPA 25/100 MG IR 1 COMBO/TAB PO SCH (09:00)
[2023-11-12] MEDS ORDERED: APIXABAN BASE 2.5 MG/TAB TAB PO SCH (09:00)
[2023-11-12] MEDS ORDERED: busPIRone HCL 5 MG/TAB PO SCH (09:00)
[2023-11-12] MEDS ORDERED: GABAPENTIN 300 MG/CAP PO SCH (09:00)
[2023-11-12] MEDS ORDERED: HYDROXYCHLOROQUINE SULFATE 200 MG/TAB PO SCH (09:00)
[2023-11-12] MEDS ORDERED: ATORVASTATIN CA40 MG PO (17:04)
[2023-11-12] MEDS ORDERED: FERROUS SULFAT325 MG PO (17:07)
[2023-11-12] MEDS ORDERED: VITAMIN D-32000 UNI1 PO (17:10)
[2023-11-12] MEDS ORDERED: PROTONIX40 M2 PO (17:12)
[2023-11-12] MEDS ORDERED: SINEMET 25/1001 TA1 PO (17:20)
[2023-11-12] MEDS ORDERED: ACETAMINOPHEN 325 MG/TAB PO PRN (18:40)
[2023-11-12] MEDS ORDERED: IBUPROFEN 600 MG/TAB PO SCH (20:30)
[2023-11-13] VITALS (25 sets, daily range): BP systolic 107–161; BP diastolic 52–105
[2023-11-13 05:48] LABS: MEAN CELL VOLUME 94.2 fL CALC (80.0-100.0); MEAN CORPUSCULAR HGB 30.5 pG CALC (26.0-32.0); MEAN CORPUSCULAR HGB CONC 32.4 g/dL CAL (32.0-36.0); RED BLOOD COUNT 3.61 mill/uL (4.70-6.10); RED CELL DISTRI WIDTH 12.5 % (11.5-15.5)
[2023-11-13] MEDS ORDERED: LEVOTHYROXINE SODIUM 75 MCG/TAB PO SCH (06:00)
[2023-11-13 06:05] LABS: ALBUMIN 3.3 g/dL (3.2-5.0); BILIRUBIN, TOTAL 0.8 mg/dL (0.2-1.3); CREATININE 0.9 mg/dL (0.7-1.3); MAGNESIUM 1.9 mg/dL (1.6-2.3); POTASSIUM 3.6 mmol/l (3.5-5.1); TOTAL PROTEIN 6.4 g/dL (6.3-8.2)
[2023-11-13] MEDS ORDERED: IBUPROFEN 600 MG/TAB PO SCH (16:00)
[2023-11-14] VITALS (21 sets, daily range): BP systolic 109–136; BP diastolic 64–82
[2023-11-14 04:55] LABS: HEMATOCRIT 37.3 % (39.0-50.0); HEMOGLOBIN 11.6 g/dl (14.0-18.0); MEAN CELL VOLUME 93.3 fL CALC (80.0-100.0); MEAN CORPUSCULAR HGB CONC 31.1 g/dL CAL (32.0-36.0); RED CELL DISTRI WIDTH 12.4 % (11.5-15.5)
[2023-11-14 05:14] LABS: ALBUMIN 3.3 g/dL (3.2-5.0); CREATININE 0.8 mg/dL (0.7-1.3); MAGNESIUM 2.2 mg/dL (1.6-2.3); POTASSIUM 3.9 mmol/l (3.5-5.1); TOTAL PROTEIN 6.3 g/dL (6.3-8.2)
[2023-11-14 05:20] LABS: BILIRUBIN, TOTAL 0.4 mg/dL (0.2-1.3)
[2023-11-14] MEDS ORDERED: TAMSULOSIN HCL 0.4 MG CAP PO SCH (08:30)
[2023-11-14] MEDS ORDERED: FUROSEMIDE 20 MG/TAB PO SCH (08:30)
[2023-11-15] VITALS (13 sets, daily range): BP systolic 112–136; BP diastolic 64–83
[2023-11-15] MEDS ORDERED: TAMSULOSIN0.4 MG PO (12:24)
== END 2023-11-15 13:10 | disposition home health service (06) | DRG 690 ==
LOC: ED 19:53 → ED-I 19:59 → ED 19:59 → ED-I 20:01 → ED 20:15 → ICU 20:16
PROVIDERS: Nurse Practitioner Family; ADMIT Internal Medicine; ATTEND Internal Medicine
PROC: 0T9B70Z Drainage of Bladder with Drainage Device, Via Natural or Artificial Opening (ICD-10-PCS; principal; 2023-11-13)
DX: N30.00 Acute cystitis without hematuria (principal); I50.22 Chronic systolic (congestive) heart failure; B96.20 Unspecified Escherichia coli [E. coli] as the cause of diseases classified elsewhere; J10.1 Influenza due to other identified influenza virus with other respiratory manifestations; I11.0 Hypertensive heart disease with heart failure; I48.91 Unspecified atrial fibrillation; I25.10 Atherosclerotic heart disease of native coronary artery without angina pectoris; E03.9 Hypothyroidism, unspecified; N40.1 Benign prostatic hyperplasia with lower urinary tract symptoms; R33.8 Other retention of urine; G20.A1 Parkinson's disease without dyskinesia, without mention of fluctuations; I25.2 Old myocardial infarction; Z86.711 Personal history of pulmonary embolism; Z79.01 Long term (current) use of anticoagulants; Z86.718 Personal history of other venous thrombosis and embolism

== ENCOUNTER 2024-02-29 22:24 | Observation (INO) | payer OTHER, MEDICARE ==
[~2024-02-29] VITALS: Ht 175.3 cm; Wt 109.0 kg
[~2024-02-29 22:24] MED LIST changes: +FERROUS SULFAT325 MG PO; +SINEMET 25/1001 TA1 PO; +TAMSULOSIN0.4 MG PO; +TOPROL XL25 M1 PO; +VITAMIN D-32000 UNI1 PO
--- NOTE | 2024-02-29 23:30 | NUR ---
TO ROOM 1 FOR TRIAGE AT BEDSIDE.
[2024-02-29 23:37] VITALS: BP 155/82
[2024-02-29 23:46] VITALS: BP 138/84
[2024-03-01] VITALS (15 sets, daily range): BP systolic 118–164; BP diastolic 74–130
[2024-03-01 00:14] LABS: BASO% 0.7 % (0-3); EOS% 2.4 % (0-8); HEMATOCRIT 36.8 % (39.0-50.0); HEMOGLOBIN 11.4 g/dl (14.0-18.0); IMMATURE GRANULOCYTES 0.2 % (0.0-5.0); LYMPH% 5.8 % (15-41); MEAN CELL VOLUME 92.2 fL CALC (80.0-100.0); MEAN CORPUSCULAR HGB 28.6 pG CALC (26.0-32.0); MONO% 15.4 % (2-13); NEUT# 4.47 thou/uL (1.82-7.42); NEUT% 75.5 % (42-76); RED BLOOD COUNT 3.99 mill/uL (4.70-6.10)
[2024-03-01 00:26] LABS: ACT PARTIAL THROMBO TIME 32.3 SECONDS (20.0-32.5); INTERNATIONAL NORMALIZED RATIO 1.1 RATIO (0.7-1.3)
[2024-03-01 00:28] LABS: PROTHROMBIN TIME 12.1 SECONDS (9.0-12.5)
[2024-03-01 00:29] LABS: ALBUMIN 4.4 g/dL (3.2-5.0); ALKALINE PHOSPHATASE 73 u/l (38-126); ANION GAP 11 (6-22 (CALC)); BILIRUBIN, TOTAL 0.6 mg/dL (0.2-1.3); BUN 26 mg/dL (8-23); BUN/CREATININE RATIO 24 (12-20 (CALC)); CARBON DIOXIDE 30 mmol/l (22-30); CHLORIDE 103 mmol/l (95-108); CREATININE 1.1 mg/dL (0.7-1.3); ESTIMATED GFR 69 ML/MIN (>=90 (CALC)); POTASSIUM 4.4 mmol/l (3.5-5.1); SGOT/AST 44 u/l (19-48); SODIUM 139 mmol/l (137-146); TOTAL PROTEIN 8.1 g/dL (6.3-8.2)
[2024-03-01 00:33] LABS: D-DIMER 0.38 mg/L (0.19-0.60)
[2024-03-01 00:52] LABS: URINE BILIRUBIN - DIPSTICK Negative (NEGATIVE); URINE BLOOD DIPSTICK Negative (NEGATIVE); URINE GLUCOSE - DIPSTICK Negative (NEGATIVE); URINE KETONE Trace mg/dL (NEGATIVE); URINE LEUK ESTERASE Negative (NEGATIVE); URINE NITRITE - DIPSTICK Negative (Negative); URINE PROTEIN - DIPSTICK 30 mg/dL (NEG-TRACE)
[2024-03-01 00:56] LABS: URINE COLOR Yellow
[2024-03-01 01:03] LABS: URINE RBC 0-2 RBC/hpf (0-5)
--- NOTE | 2024-03-01 01:30 | NUR ---
MD AT BEDSIDE REVIEWING RESULTS WITH PT
[2024-03-01] MEDS ORDERED: ONDANSETRON HCl 4 MG/2 ML SDV IV ONE (01:55)
[2024-03-01] MEDS ORDERED: OSELTAMIVIR PHOSPHATE 75 MG/TAB CAP PO ONE (03:10)
[2024-03-01] MEDS ORDERED: SODIUM CHLORIDE 0.9% 1,000 ML IV PRN (03:10)
[2024-03-01] MEDS ORDERED: ACETAMINOPHEN 325 MG/TAB PO ONE (03:10)
[2024-03-01] MEDS ORDERED: MAGNESIUM HYDROXIDE 30 ML UDC PO PRN (03:10)
[2024-03-01] MEDS ORDERED: ACETAMINOPHEN 325 MG/TAB PO PRN (03:10)
--- NOTE | 2024-03-01 03:20 | NUR ---
PT MEDICATED PER EMAR FOR CELESTE. PT UPDATED ON CURRENT PLAN OF CARE. NO DISTRESS NOTED AT THIS TIME.
--- NOTE | 2024-03-01 04:19 | NUR ---
PT REPORT GIVEN TO OSIRIS CORTEZ IN ICU FLOOR
--- NOTE | 2024-03-01 04:28 | NUR ---
78 yr old white male admitted icu1 as medsurg overflow per wc from er. transferred self to bed. color television console monitor shows sinus rhythm pvcs. ivf began as ordered. history obtained per pt er & old record. oriented to room. fall precautions initiated. droplet precautions initiated.
[2024-03-01] MEDS ORDERED: METOPROLOL SUCCINATE 25 MG/TAB-TOPROL XL PO SCH (10:00)
[2024-03-01] MEDS ORDERED: FUROSEMIDE 20 MG/TAB PO SCH (10:00)
[2024-03-01] MEDS ORDERED: busPIRone HCL 5 MG/TAB PO SCH (10:00)
[2024-03-01] MEDS ORDERED: PANTOPRAZOLE SODIUM Sesquihydr 40 MG/TAB PO SCH (10:00)
[2024-03-01] MEDS ORDERED: hydrALAZINE HCL 20 MG/ML VIAL(1 ML) IV PRN (10:00)
[2024-03-01] MEDS ORDERED: methylPREDNISolone Sod Succ 40 MG/ML SDV IV SCH (10:30)
[2024-03-01] MEDS ORDERED: cefTRIAXone SODIUM 2 GM in SODIUM CHLORIDE 0.9% 100 ML IV SCH (10:30)
[2024-03-01] MEDS ORDERED: GUAIFENESIN 600 MG/TAB PO SCH (11:00)
[2024-03-01] MEDS ORDERED: DOXYCYCLINE HYCLATE 100 MG in SODIUM CHLORIDE 0.9% 100 ML IV SCH (11:00)
[2024-03-01] MEDS ORDERED: SINEMET 25/1001 TA2 PO (11:25)
[2024-03-01] MEDS ORDERED: KETOROLAC TROMETHAMINE 15 MG/ML SDV IV SCH (12:00)
[2024-03-01] MEDS ORDERED: PROCHLORPERAZINE MALEATE 5 MG/TAB PO SCH (12:00)
[2024-03-01] MEDS ORDERED: CARBIDOPA/LEVODOPA 25/100 MG IR 1 COMBO/TAB PO SCH (12:00)
[2024-03-01] MEDS ORDERED: APIXABAN BASE 5 MG TAB PO SCH (12:00)
[2024-03-01] MEDS ORDERED: DiphenhydrAMINE HCL 50 MG/ML SDV IV SCH (12:00)
--- NOTE | 2024-03-01 14:23 | NUR ---
PATIENT UP TO CHAIR IN ROOM. RESPIRATIONS EVEN AND UNLABORED ON ROOM AIR. NOTED TO HAVE AN INTERMITTERNT NON-PRODUCTIVE COUGH AT THIS TIME. DENIES PAIN OR DISCOMFORT. SAFTEY MEASURES IN PLACE. CALL LIGHT WITHIN REACH.
[2024-03-01] MEDS ORDERED: GABAPENTIN 300 MG/CAP PO SCH (15:00)
--- NOTE | 2024-03-01 20:00 | NUR ---
PT STATED HE DID NOT GET DINNER, DIETARY NOTIFIED, ANOTHER MEAL TRAY PROVIDED. ASSESSMENT COMPLETED. PT HAS NO COMPLAINTS AT THIS TIME. EDUCATED PT ON TRANSFER TO [place]. V/S ANIVAL, CALL LIGHT IN REACH
[2024-03-01] MEDS ORDERED: ATORVASTATIN CALCIUM 40 MG/TAB PO SCH (21:00)
--- NOTE | 2024-03-01 22:50 | NUR ---
REPORT GIVEN TO NURSE. PT TRANSFERED TO [facility] BED 265 VIA W/C @ APPROX 2236.
[2024-03-02 04:35] LABS: ALBUMIN 3.8 g/dL (3.2-5.0); BILIRUBIN, TOTAL 0.4 mg/dL (0.2-1.3); POTASSIUM 4.5 mmol/l (3.5-5.1); TOTAL PROTEIN 6.8 g/dL (6.3-8.2)
[2024-03-02 04:40] LABS: BASO% 0.5 % (0-3); HEMATOCRIT 34.1 % (39.0-50.0); HEMOGLOBIN 10.6 g/dl (14.0-18.0); IMMATURE GRANULOCYTES 0.2 % (0.0-5.0); LYMPH% 9.9 % (15-41); MEAN CELL VOLUME 93.7 fL CALC (80.0-100.0); MEAN CORPUSCULAR HGB 29.1 pG CALC (26.0-32.0); MEAN CORPUSCULAR HGB CONC 31.1 g/dL CAL (32.0-36.0); MONO% 13.6 % (2-13); NEUT# 3.3 thou/uL (1.82-7.42); NEUT% 75.8 % (42-76); RED BLOOD COUNT 3.64 mill/uL (4.70-6.10)
[2024-03-02 05:09] VITALS: BP 144/88
[2024-03-02] MEDS ORDERED: LEVOTHYROXINE SODIUM 75 MCG/TAB PO SCH (06:00)
--- NOTE | 2024-03-02 06:38 | NUR ---
Patient alert and oriented x4, resting in bed, no complains of pain, non productive cough, droplet isolation maintain.
[2024-03-02 07:12] VITALS: BP 119/68
--- NOTE | 2024-03-02 08:11 | NUR ---
PATIENT A.O X3; ROOM AIR; BREATHING UNLABORED AND EVEN; DENEID ANY PAIN; DENIED ANY N/D/V AT THIS TIME; TELE LEADS INTACT AND WORKING WITH NO ISSUES; TOELRATED MEDICATIION WITH NO ISSUES; NO S.S OF DISTRESS; NO COMPLAINTS AT THIS TIME; IV SITE CLEAN ANDINTACT JOANIE LOCKED WITH NO ISSUES; CALL LIGHT WITHIN REACH, VERBALIZED UNDERSTADNING ON HOW TP USE, PERSONAL ITEMS WITHIN REACHL; BED IN LOWEST POSTION;SAFETY MEAURES IN PLACE
[2024-03-02] MEDS ORDERED: OSELTAMIVIR PHOSPHATE 75 MG/TAB CAP PO SCH (09:00)
[2024-03-02 10:25] VITALS: BP 152/90
--- NOTE | 2024-03-02 12:40 | NUR ---
PATEINT SITTING IN CHIAR NEXT TO BED WITH AT BEDSIDE; DENEID ANY PAIN; DENIED ANY N/D/V AT THIS TIME; IV SITE CLEAN AND INTACT RUNNING WITH ANTIBODICS AT THIS TIME; TELE LEADS ARE INTACT WORKING WITH NO ISSUES; NO COMPLAINST AT THIS TIME; PATIENT STAYS IN ISOLATION AT THIS TIME;CALL LIGHT WITHIN REACH, VERBALIZED UNDERSTANDING ON HOW TO USE, PERSONAL ITEMS WITHIN REACH; BED IN LOWEST POSTION;SAFETY MEASURES IN PLACE
[2024-03-02] MEDS ORDERED: IPRATROPIUM-Albuterol 0.5MG-2.5MG/3 ML NEB SCH (13:00)
--- NOTE | 2024-03-02 15:48 | NUR ---
PATIENT IS CURRENTLEY IN BATHROOM AT THIS TIME; DNEIED ANY COMPLAINTS; DENIED ANY N/D/V AT THIS TIME; IV SITE CLEAN AND INTACT SALINE LOCKED AT THIS TIME; PATEINT AMBULATES WITH STABLE GAIT; CALL LIGHT ON BED; BED IN LOWEST POSTION;SAFETY MEAURES IN PLACE
[2024-03-02 19:29] VITALS: BP 149/86
--- NOTE | 2024-03-02 19:40 | NUR ---
PT ALERT AND ORIENTED X3. RESPS ARE EVEN AND UNLABORED. NO DISTRESS NOTED ON ASSESSMENT. PT IS ON ROOM AIR. DENIES ANY PAIN, NAUSE OR VOMITING. TELE MONITOR ON PLACE WITH THE TELE LEAD INTACT NAD WORKING WELL. LUNGS CLEAR TO AUSCULTATION. PRODUCTIVE COUGHT NOTED. GENERALIZED EDEMA +1. BROWNISH RIGHT LOWER EXTREMITIE. PALAPABLE PEDAL PULSES. 20 RAC-SALINE LOCK FLSUHED WITH 5 CC. DENIES ANY NEEDS, CALL LIGHT IN RECAH AND SAFETY PRECAUTIONS ON PLACE.
--- NOTE | 2024-03-02 20:07 | NUR ---
PT RECEIVING BREATHING TREATMENT AT THIS TIME.
[2024-03-02] MEDS ORDERED: methylPREDNISolone Sod Succ 40 MG/ML SDV IV SCH (21:00)
[2024-03-03 00:05] VITALS: BP 158/92
--- NOTE | 2024-03-03 00:31 | NUR ---
PT SITTING UP ON THE RECLINER RECEIVING BREATHING TREATMENT AT THIS TIME. NO DISTRESS NOTED. TELE MONITOR ON PLACE. CALL LIGHT IN REACH
--- NOTE | 2024-03-03 04:42 | NUR ---
PT RESTING ON THE RELCINER AT THIS TIME. RESPS ARE EVEN AND UNLABORED. NO DISTRESS NOTED. CALL LIGHT IN REACH-
[2024-03-03 05:33] LABS: ALBUMIN 4.2 g/dL (3.2-5.0); BILIRUBIN, TOTAL 0.3 mg/dL (0.2-1.3); CREATININE 1.1 mg/dL (0.7-1.3); MAGNESIUM 1.9 mg/dL (1.6-2.3); POTASSIUM 4.5 mmol/l (3.5-5.1); TOTAL PROTEIN 7.5 g/dL (6.3-8.2)
[2024-03-03 05:37] LABS: BASO% 0.2 % (0-3); HEMATOCRIT 35.5 % (39.0-50.0); HEMOGLOBIN 11.1 g/dl (14.0-18.0); IMMATURE GRANULOCYTES 0.4 % (0.0-5.0); MEAN CELL VOLUME 93.4 fL CALC (80.0-100.0); MEAN CORPUSCULAR HGB 29.2 pG CALC (26.0-32.0); MEAN CORPUSCULAR HGB CONC 31.3 g/dL CAL (32.0-36.0); MONO% 4.1 % (2-13); NEUT# 5.11 thou/uL (1.82-7.42); NEUT% 90.3 % (42-76); RED BLOOD COUNT 3.8 mill/uL (4.70-6.10); RED CELL DISTRI WIDTH 13.1 % (11.5-15.5)
--- NOTE | 2024-03-03 08:11 | NUR ---
PATIENT IS A/O X3; ROOM AIR; BREATHING UNLABORED AND EVENL; DENIED ANY PAIN; DENIED ANY N/D/V AT THIS TIME; IV SITE CLEAN AND INTACT SALINE LOCKED AT THIS TIME;TELE LEADS INTCAT AND WORKING; NO S.S OF DISTRESS AT THIS TIME; NO COMPLAINTS; PATIENT SITTING IN CHAIR NEXT TO BED, EATING BREKFAST; ISOLATION BAG ON DOOR; CALL LIGHT WITHIN REACH, VERBALIZED UNDERSTANDING ON HOW TO USEM PERSONAL ITEMS WITHN REACH; BED IN LOWEST POSTION; SAFEYY MEASURES IN PLACE
[2024-03-03 10:57] VITALS: BP 160/87
[2024-03-03] MEDS ORDERED: TAM75CAP PO (11:52)
[2024-03-03] MEDS ORDERED: DOXYCYCLINE100 MG PO (11:53)
[2024-03-03] MEDS ORDERED: PREDNISONE10 MG PO (11:54)
--- NOTE | 2024-03-03 13:22 | NUR ---
IV site discontinued, cath intact. No edema , no redness, voices no discomfort. Discharge instructions given. Patient verbalizes understanding of same. Discharged in stable condition via Ambulatory to Home with family. All belongings sent with pt.
--- NOTE | 2024-03-06 11:10 | NUR ---
Discharge follow up call completed 03/06/24. states patient is doing well and improving steadily. Patient is taking prescribed medication as directed. They plan to contact PCP on Saturday to schedule a follow up appointment. No needs or concern verbalized at this time.
== END 2024-03-03 13:22 | disposition home or self-care (01) | DRG 193 ==
LOC: ED 22:24 → ED-I 03-01 02:30 → ED 03-01 03:07 → MS2 03-01 03:08 → ICU 03-01 03:08 → MS2 03-01 22:30
PROVIDERS: Family Medicine; Nurse Practitioner Family; ADMIT Internal Medicine; ATTEND Internal Medicine
DX: J10.00 Influenza due to other identified influenza virus with unspecified type of pneumonia (principal); J96.01 Acute respiratory failure with hypoxia; I11.0 Hypertensive heart disease with heart failure; I50.9 Heart failure, unspecified; I25.10 Atherosclerotic heart disease of native coronary artery without angina pectoris; E03.9 Hypothyroidism, unspecified; G20.A1 Parkinson's disease without dyskinesia, without mention of fluctuations; G62.9 Polyneuropathy, unspecified; I25.2 Old myocardial infarction; Z87.891 Personal history of nicotine dependence; Z79.01 Long term (current) use of anticoagulants; Z86.718 Personal history of other venous thrombosis and embolism; Z20.822 Contact with and (suspected) exposure to COVID-19
CPT/HCPCS: J0696; J1200; J1885; J2405

== ENCOUNTER 2024-04-10 04:19 | Emergency (ER) | payer OTHER, MEDICARE ==
[~2024-04-10] VITALS: Ht 175.3 cm; Wt 90.0 kg
[~2024-04-10 04:19] MED LIST changes: +DOXYCYCLINE100 MG PO; +PREDNISONE10 MG PO; +SINEMET 25/1001 TA2 PO; +TAM75CAP PO
[2024-04-10 04:32] VITALS: BP 143/84
[2024-04-10 06:39] VITALS: BP 143/84
== END 2024-04-10 06:40 | disposition home or self-care (01) | DRG 605 ==
LOC: ED 04:19
DX: S00.81XA Abrasion of other part of head, initial encounter (principal); S60.419A Abrasion of unspecified finger, initial encounter; F43.10 Post-traumatic stress disorder, unspecified; I11.0 Hypertensive heart disease with heart failure; I50.9 Heart failure, unspecified; I25.10 Atherosclerotic heart disease of native coronary artery without angina pectoris; I48.91 Unspecified atrial fibrillation; E03.9 Hypothyroidism, unspecified; G20.A1 Parkinson's disease without dyskinesia, without mention of fluctuations; I25.2 Old myocardial infarction; W06.XXXA Fall from bed, initial encounter; Z95.5 Presence of coronary angioplasty implant and graft; Z86.718 Personal history of other venous thrombosis and embolism; Z79.01 Long term (current) use of anticoagulants